=== PATIENT | female | born 1955 | race Caucasian/White ===

== ENCOUNTER 2019-08-09 17:50 | Emergency (ER) | payer MEDICARE, OTHER ==
[~2019-08-09] VITALS: Ht 160 cm; Wt 130.4 kg
[~2019-08-09 17:50] MED LIST: ALBU6.7H9 INH; ASPI81TA30 PO; BUDE10.22 INH; BUSP10TA10 PO; CALC-793 PO; DICL75TA5 PO; FERR325T39 PO; HYDR25TA4 PO; LIPOZENE PO; LISI-604 PO; SIMV20TA PO
[2019-08-09] MEDS ORDERED: diphenhydrAMINE 50 mg/ml inj IV ONE (18:55)
[2019-08-09] MEDS ORDERED: famotidine/PF 10 mg/ml inj IV ONE (18:55)
[2019-08-09] MEDS ORDERED: predniSONE 20 mg tablet PO STA (18:55)
[2019-08-09] MEDS ORDERED: DIPH-423 PO (21:46)
[2019-08-09] MEDS ORDERED: PRED20TA PO (21:46)
[2019-08-09 22:07] VITALS: BP 139/89
== END 2019-08-09 22:07 | disposition home or self-care (01) ==
LOC: ER 17:51
DX: T78.3XXA Angioneurotic edema, initial encounter (principal); E66.9 Obesity, unspecified; I10 Essential (primary) hypertension; J45.909 Unspecified asthma, uncomplicated; K21.9 Gastro-esophageal reflux disease without esophagitis; Z98.890 Other specified postprocedural states; Z88.5 Allergy status to narcotic agent; Z79.82 Long term (current) use of aspirin; Z79.899 Other long term (current) drug therapy; Y92.89 Other specified places as the place of occurrence of the external cause
CPT/HCPCS: 96374; 96375; 99284; J1200; J3490; J7512

== ENCOUNTER 2019-09-16 08:10 | Day surgery (SDC) | payer MEDICARE, OTHER ==
[~2019-09-16 08:10] MED LIST changes: +DIPH-423 PO
[2019-09-16] MEDS ORDERED: LIDOcaine 2% 5ml jelly ONE (08:33)
== END 2019-09-16 09:37 | disposition home or self-care (01) ==
LOC: WOUND CARE 08:10
PROVIDERS: ATTEND Nurse Practitioner
DX: L97.822 Non-pressure chronic ulcer of other part of left lower leg with fat layer exposed (principal); I10 Essential (primary) hypertension; I87.2 Venous insufficiency (chronic) (peripheral); I89.0 Lymphedema, not elsewhere classified; K21.9 Gastro-esophageal reflux disease without esophagitis; E66.9 Obesity, unspecified; E78.5 Hyperlipidemia, unspecified; J45.909 Unspecified asthma, uncomplicated; M19.90 Unspecified osteoarthritis, unspecified site; Z79.82 Long term (current) use of aspirin; Z79.899 Other long term (current) drug therapy; Z98.890 Other specified postprocedural states; Z87.891 Personal history of nicotine dependence; Z96.60 Presence of unspecified orthopedic joint implant; Z68.42 Body mass index [BMI] 45.0-49.9, adult; Z88.5 Allergy status to narcotic agent
CPT/HCPCS: 97597

== ENCOUNTER 2019-09-23 08:23 | Day surgery (SDC) | payer MEDICARE, OTHER ==
[2019-09-23] MEDS ORDERED: LIDOcaine 2% 5ml jelly ONE (08:33)
== END 2019-09-23 09:05 | disposition home or self-care (01) ==
LOC: WOUND CARE 08:23
PROVIDERS: ATTEND Nurse Practitioner
DX: L97.222 Non-pressure chronic ulcer of left calf with fat layer exposed (principal); I10 Essential (primary) hypertension; K21.9 Gastro-esophageal reflux disease without esophagitis; E78.5 Hyperlipidemia, unspecified; I89.0 Lymphedema, not elsewhere classified; E66.9 Obesity, unspecified; J45.909 Unspecified asthma, uncomplicated; M19.90 Unspecified osteoarthritis, unspecified site; I87.2 Venous insufficiency (chronic) (peripheral); Z79.899 Other long term (current) drug therapy; Z98.890 Other specified postprocedural states; Z87.891 Personal history of nicotine dependence; Z96.698 Presence of other orthopedic joint implants; Z79.82 Long term (current) use of aspirin; Z88.5 Allergy status to narcotic agent; Z68.42 Body mass index [BMI] 45.0-49.9, adult
CPT/HCPCS: 97597

== ENCOUNTER 2019-09-28 08:27 | Outpatient (CLI) | payer MEDICARE, OTHER | END 2019-09-28 09:17 | disposition home or self-care (01) | LOC: WOUND CARE 08:27 | PROVIDERS: ATTEND Nurse Practitioner | DX: L97.522 Non-pressure chronic ulcer of other part of left foot with fat layer exposed (principal); I10 Essential (primary) hypertension; K21.9 Gastro-esophageal reflux disease without esophagitis; E78.5 Hyperlipidemia, unspecified; I89.0 Lymphedema, not elsewhere classified; E66.9 Obesity, unspecified; J45.909 Unspecified asthma, uncomplicated; M19.90 Unspecified osteoarthritis, unspecified site; I87.2 Venous insufficiency (chronic) (peripheral); Z79.899 Other long term (current) drug therapy; Z98.890 Other specified postprocedural states; Z87.891 Personal history of nicotine dependence; Z96.698 Presence of other orthopedic joint implants; Z79.82 Long term (current) use of aspirin; Z88.5 Allergy status to narcotic agent; Z68.42 Body mass index [BMI] 45.0-49.9, adult | CPT/HCPCS: G0463 ==

== ENCOUNTER 2019-11-18 06:17 | Day surgery (SDC) | payer MEDICARE, OTHER ==
[2019-11-11 11:56] LABS: BASOPHILS % (AUTO) 0.5 % (0-1); CLARITY,URINE CLEAR (Clear); COLOR,URINE YELLOW (Yellow); EOSINOPHILS # (AUTO) 0.5 X10'3 (0-0.9); EOSINOPHILS % (AUTO) 4.9 % (0-6); GLUCOSE, URINE NEGATIVE (Neg); KETONES,URINE NEGATIVE (Neg); LEUKOCYTE ESTERASE ,URINE NEGATIVE (Neg); LYMPHOCYTES # (AUTO) 1.7 X10'3 (1.1-4.8); MEAN CORPUSCULAR HEMOGLOBIN 30.3 PG (27.0-31.0); MEAN CORPUSCULAR HGB CONC 33.2 g/dL (33.0-36.5); MEAN CORPUSCULAR VOLUME 91.4 FL (78-98); MEAN PLATELET VOLUME 8.7 FL (7.4-10.4); MONOCYTES # (AUTO) 0.8 X10'3 (0-0.9); MONOCYTES % (AUTO) 7.4 % (2-12); NEUTROPHILS # (AUTO) 7.6 X10'3 (1.8-7.7); NEUTROPHILS % (AUTO) 71.2 % (42-75); NITRITES, URINE NEGATIVE (Neg); OCCULT BLOOD,URINE NEGATIVE (Neg); PRE OP HEMATOCRIT 41.5 % (35.0-45.0); PRE OP HEMOGLOBIN 13.8 g/dL (12.0-16.0); PRE OP PLATELET COUNT 234 X10'3 (140-440); PROTEIN,URINE NEGATIVE (Neg); RED BLOOD COUNT 4.54 X10'6 (4.20-5.60); RED CELL DISTRIBUTION WIDTH 14.9 % (11.5-14.5); UROBILINOGEN,URINE 0.2 E.U/dL (0.2-1.0)
[2019-11-11 11:59] LABS: UA COLLECTION TYPE NON-SPECIFIED
[2019-11-11 12:13] LABS: ALBUMIN 3.3 G/DL (3.4-5.0); ALBUMIN/GLOBULIN RATIO 0.8 (1.1-1.5); ALKALINE PHOSPHATASE 78 IU/L (46-116); BLOOD UREA NITROGEN 14 MG/DL (7-18); BUN/CREATININE RATIO 11.8 (6.6-38.0); CHLORIDE 104 MMOL/L (99-107); CREATININE 1.19 MG/DL (0.40-0.90); PRE OP ALT 24 U/L (30-65); PRE OP ANION GAP 10 (8-16); PRE OP AST 15 U/L (10-37); PRE OP BILIRUB, TOTAL 0.4 MG/DL (0.0-1.0); PRE OP GLUCOSE 105 MG/DL (70-104); PRE OP SODIUM 140 MMOL/L (135-145); TOTAL PROTEIN 7.2 G/DL (6.4-8.2); eGFR 46 ML/MIN
[2019-11-11 12:37] LABS: PRE OP POTASSIUM 3.1 MMOL/L (3.4-5.1)
[2019-11-18] VITALS (18 sets, daily range): BP systolic 118–138; BP diastolic 60–74
[~2019-11-18] VITALS: Ht 162.6 cm; Wt 132.4 kg
[~2019-11-18 06:17] MED LIST changes: -CALC-793 PO; +CHLO25TA10 PO; +CHOL500049 PO; +DICL100G15 TOP; -DICL75TA5 PO; -HYDR25TA4 PO; +LIDOcaine 1% (10mg/ml) 2ml vial ONE; -LIPOZENE PO; -LISI-604 PO; +LOSA25TA41 PO; +MUPI22OI30 TOP; +OMEP-50 PO; +OXYB5TAB16 PO; +albuterol 2.5 MG/3 ML nebule NEB ONE; +ceFAZolin 2gm in dextrose, iso 50 ML IV ONE; +famotidine 20mg tablet PO ONE; +ringers solution, lacted 1,000 ML IV SCH
[2019-11-18] MEDS ORDERED: BUPIVAcaine/PF 2.5 mg/ml (0.25%) 30ml vial ONE (06:36)
[2019-11-18] MEDS ORDERED: bacitracin 15gm ointment TP ONE (06:36)
[2019-11-18 07:21] LABS: ISTAT CREATININE 0.7 mg/dL (0.6-1.1); ISTAT HGB 13.6 g/dl (12.0-16.0); ISTAT IONIZED CALCIUM 1.26 mmol/L (1.03-1.32); ISTAT K 3.6 mmol/L (3.5-5.1); POC BUN/CREATININE RATIO 22.9 (6.6-38.0)
[2019-11-18] MEDS ORDERED: rocuronium 10mg/ml inj IV ONE (07:37)
[2019-11-18] MEDS ORDERED: MIDAZolam 5mg/5ml vial ONE (07:37)
[2019-11-18] MEDS ORDERED: LIDOcaine 2% (20mg/ml) 5ml vial ONE (07:37)
[2019-11-18] MEDS ORDERED: fentaNYL/PF 50MCG/1 ML 2ML syringe ONE ×2 (07:37→08:42)
[2019-11-18] MEDS ORDERED: ROPIVAcaine 0.5% (5mg/ml) 30ml vial ONE ×2 (07:37→09:31)
[2019-11-18] MEDS ORDERED: propofol inj 20 ML IV ONE (07:37)
[2019-11-18] MEDS ORDERED: sevoflurane 250ml liquid IH ONE (08:11)
[2019-11-18] MEDS ORDERED: ringers solution, lacted 1,000 ML IV SCH (08:46)
[2019-11-18] MEDS ORDERED: meperidine/PF 25mg/ml syringe IV PRN ×2 (08:50)
[2019-11-18] MEDS ORDERED: HYDROmorphone inj. 0.5 MG/0.5 ML DISP.SYRIN IV PRN ×2 (08:50)
[2019-11-18] MEDS ORDERED: ondansetron/PF 4mg/2ml inj IV PRN (08:50)
[2019-11-18] MEDS ORDERED: acetaminophen 1,000mg/100ml IV 100 ML IV ONE (11:22)
--- NOTE | 2019-11-18 11:52 | NUR ---
RECEIVED FROM OR VIA [facility] ACCOMPANIED BY ANESTHESIOLOGIST DR REYES, REPORT GIVEN. PT DROWSY BUT AROUSES EASILY WITH NO COMPLAINT OF PAIN AT THIS TIME. 20 GAUGE PIV L HAND PATENT AND RUNNING LR AT 100 ML/HR. RFOOT DRESSING OF ADAPTIC,4X4, ELLIE WRAP AND SPLINT CDI. CAP REFILL GOOD, SKIN PINK AND WARM, VSS, ABD SOFT, RESTING COMFORTABLY WITH FOOT OF BED GATCHED.
[2019-11-18] MEDS ORDERED: glycopyrrolate 0.2mg/ml inj ONE (11:56)
[2019-11-18] MEDS ORDERED: dexamethasone sod phosphate 4mg/ml inj. ONE (11:56)
[2019-11-18] MEDS ORDERED: ondansetron/PF 4mg/2ml inj ONE (11:56)
[2019-11-18] MEDS ORDERED: neostigmine methylsulfate 1 MG/ML 10ml vial ONE (11:56)
--- NOTE | 2019-11-18 12:20 | NUR ---
AMEND>>> PREVIOUS NOTE SHOULD HAVE BEEN TIMED AT 1200<<<
--- NOTE | 2019-11-18 14:40 | NUR ---
PT AWAKE AND ALERT WITH COMPLAINT OF PAIN AT A LEVEL 4 AT THIS TIME. 20 GAUGE PIV L FA DC/D CATH TIP INTACT. RFOOT DRESSING OF ADAPTIC,4X4, WEBRIL ELLIE WRAP AND SPLINT WITH SMALL AMOUNT OF DRAINAGE. DR COLE AWARE AND DRESSING REINFORCED. CAP REFILL GOOD, SKIN PINK AND WARM, VSS, ABD SOFT, ABLE TO TOLERATE FLUIDS AND DRESS SELF. DISCHARGE INSTRUCTIONS GIVEN AND PT VERBALIZED UNDERSTANDING. TRANSFERRED TO BROTHER IN PERSONAL VEHICLE TO HOME
== END 2019-11-18 14:40 | disposition home or self-care (01) ==
LOC: PAS 06:17
PROVIDERS: ATTEND Podiatrist Foot & Ankle Surgery
DX: M21.41 Flat foot [pes planus] (acquired), right foot (principal); M21.6X1 Other acquired deformities of right foot; M19.071 Primary osteoarthritis, right ankle and foot; G89.18 Other acute postprocedural pain; K21.9 Gastro-esophageal reflux disease without esophagitis; M19.90 Unspecified osteoarthritis, unspecified site; F41.9 Anxiety disorder, unspecified; I10 Essential (primary) hypertension; E66.01 Morbid (severe) obesity due to excess calories; Z68.43 Body mass index [BMI] 50.0-59.9, adult; Z98.890 Other specified postprocedural states; Z96.653 Presence of artificial knee joint, bilateral; Z87.891 Personal history of nicotine dependence; Z88.5 Allergy status to narcotic agent; Z88.8 Allergy status to other drugs, medicaments and biological substances; Z11.59 Encounter for screening for other viral diseases; Z79.899 Other long term (current) drug therapy
CPT/HCPCS: 27687; 28715; 36415; 64447; 64450; 73630; 76000; 80047; 80053; 81003; 85025; 87635; A6223; C1713; C1758; C1762; J0131; J1100; J2001; J2250; J2405; J2704; J2710; J3010; J3490; J7120; A4618; A6449; A7000; J2795

== ENCOUNTER 2020-10-18 16:18 | Emergency (ER) | payer MEDICARE, OTHER ==
[~2020-10-18] VITALS: Ht 165.1 cm; Wt 139.1 kg
[~2020-10-18 16:18] MED LIST changes: -LIDOcaine 1% (10mg/ml) 2ml vial ONE; -albuterol 2.5 MG/3 ML nebule NEB ONE; -ceFAZolin 2gm in dextrose, iso 50 ML IV ONE; -famotidine 20mg tablet PO ONE; -ringers solution, lacted 1,000 ML IV SCH
[2020-10-18] MEDS ORDERED: methylPREDNISolone sod succ 125mg/2ml vial IV ONE (16:25)
[2020-10-18] MEDS ORDERED: diphenhydrAMINE 50 mg/ml inj IV ONE (16:25)
[2020-10-18] MEDS ORDERED: PRED20TA PO (17:59)
[2020-10-18 18:13] VITALS: BP 139/66
== END 2020-10-18 18:16 | disposition home or self-care (01) ==
LOC: ER 16:19
DX: R21 Rash and other nonspecific skin eruption (principal); T46.4X5A Adverse effect of angiotensin-converting-enzyme inhibitors, initial encounter; I10 Essential (primary) hypertension; J45.909 Unspecified asthma, uncomplicated; K21.9 Gastro-esophageal reflux disease without esophagitis; Z98.890 Other specified postprocedural states; Z79.899 Other long term (current) drug therapy; Z79.82 Long term (current) use of aspirin; Z88.6 Allergy status to analgesic agent; Z88.8 Allergy status to other drugs, medicaments and biological substances; Y92.89 Other specified places as the place of occurrence of the external cause
CPT/HCPCS: 96374; 96375; 99284; J1200; J2930

== ENCOUNTER 2020-10-25 20:33 | Emergency (ER) | payer MEDICARE, OTHER ==
[~2020-10-25] VITALS: Ht 165.1 cm; Wt 139.1 kg
[2020-10-25] MEDS ORDERED: epiNEPHrine 1 mg/ml inj SQ ONE (23:20)
[2020-10-25] MEDS ORDERED: methylPREDNISolone sod succ 125mg/2ml vial IV ONE (23:20)
[2020-10-25] MEDS ORDERED: albuterol 2.5 MG/3 ML nebule NEB ONE (23:20)
[2020-10-25] MEDS ORDERED: famotidine/PF 10 mg/ml inj IV ONE (23:20)
[2020-10-26] MEDS ORDERED: AMLO10TA48 PO (00:48)
[2020-10-26] MEDS ORDERED: PRED20TA PO (00:48)
[2020-10-26] MEDS ORDERED: FAMO-128 PO (00:48)
[2020-10-26 01:02] VITALS: BP 110/64
== END 2020-10-26 01:00 | disposition home or self-care (01) ==
LOC: ER 20:33
DX: T78.3XXA Angioneurotic edema, initial encounter (principal); T78.2XXA Anaphylactic shock, unspecified, initial encounter; J45.909 Unspecified asthma, uncomplicated; I10 Essential (primary) hypertension; K21.9 Gastro-esophageal reflux disease without esophagitis; Z98.890 Other specified postprocedural states; Z88.5 Allergy status to narcotic agent; Z88.8 Allergy status to other drugs, medicaments and biological substances; Z79.82 Long term (current) use of aspirin; Z79.899 Other long term (current) drug therapy; Y92.89 Other specified places as the place of occurrence of the external cause
CPT/HCPCS: 94640; 96372; 96374; 96375; 99284; J0171; J2930; J3490; 94760

== ENCOUNTER → 2020-11-26 | Emergency (ER) | payer MEDICARE, OTHER ==
[~2020-11-26] VITALS: Ht 165.1 cm; Wt 150.9 kg
[~2020-11-26] MED LIST changes: +AMLO10TA48 PO; +DIPH25CA83 PO; +FAMO-128 PO; +FAMO40TA58 PO; +PRED10TA23 PO; +diphenhydrAMINE 25mg capsule PO ONE; +epiNEPHrine 1 mg/ml inj IM STA; +famotidine 20mg tablet PO ONE; +predniSONE 20 mg tablet PO ONE
[2020-11-26 09:30] VITALS: BP 124/68
== END | disposition home or self-care (01) ==
LOC: ER 07:04
DX: R22.0 Localized swelling, mass and lump, head (principal); T45.0X5A Adverse effect of antiallergic and antiemetic drugs, initial encounter; I10 Essential (primary) hypertension; J45.909 Unspecified asthma, uncomplicated; K21.9 Gastro-esophageal reflux disease without esophagitis; Z98.890 Other specified postprocedural states; Z88.5 Allergy status to narcotic agent; Z88.8 Allergy status to other drugs, medicaments and biological substances; Z79.82 Long term (current) use of aspirin; Z79.899 Other long term (current) drug therapy; Y92.89 Other specified places as the place of occurrence of the external cause
CPT/HCPCS: 93005; 96372; 99291; J0171; J7512; Q0163

== ENCOUNTER → 2021-07-12 | Day surgery (SDC) | payer MEDICARE, OTHER ==
[2021-07-05 14:59] LABS: CLARITY,URINE CLEAR (Clear); GLUCOSE, URINE NEGATIVE (Neg); KETONES,URINE NEGATIVE (Neg); LEUKOCYTE ESTERASE ,URINE NEGATIVE (Neg); NITRITES, URINE NEGATIVE (Neg); OCCULT BLOOD,URINE NEGATIVE (Neg); PROTEIN,URINE NEGATIVE (Neg); UROBILINOGEN,URINE 0.2 E.U/dL (0.2-1.0)
[2021-07-05 15:00] LABS: COLOR,URINE STRAW (Yellow); UA COLLECTION TYPE CLN CATCH MIDSTREAM
[2021-07-05 15:03] LABS: BASOPHILS % (AUTO) 0.5 % (0-1); EOSINOPHILS # (AUTO) 0.3 X10'3 (0-0.9); EOSINOPHILS % (AUTO) 3.1 % (0-6); LYMPHOCYTES # (AUTO) 2.1 X10'3 (1.1-4.8); LYMPHOCYTES % (AUTO) 19.3 % (21-51); MEAN CORPUSCULAR HEMOGLOBIN 30.2 PG (27.0-31.0); MEAN CORPUSCULAR HGB CONC 33.2 g/dL (33.0-36.5); MEAN PLATELET VOLUME 9.1 FL (7.4-10.4); MONOCYTES # (AUTO) 0.7 X10'3 (0-0.9); NEUTROPHILS # (AUTO) 7.5 X10'3 (1.8-7.7); NEUTROPHILS % (AUTO) 70.1 % (42-75); PRE OP HEMATOCRIT 44.9 % (35.0-45.0); PRE OP HEMOGLOBIN 14.9 g/dL (12.0-16.0); PRE OP PLATELET COUNT 231 X10'3 (140-440); RED BLOOD COUNT 4.94 X10'6 (4.20-5.60); RED CELL DISTRIBUTION WIDTH 15.3 % (11.5-14.5)
[2021-07-05 15:06] LABS: ALBUMIN 3.4 G/DL (3.4-5.0); ALBUMIN/GLOBULIN RATIO 0.8 (1.1-1.5); ALKALINE PHOSPHATASE 107 IU/L (46-116); BLOOD UREA NITROGEN 18 MG/DL (7-18); BUN/CREATININE RATIO 21.4 (6.6-38.0); CALCIUM 9.2 MG/DL (8.5-10.1); CHLORIDE 104 MMOL/L (99-107); CREATININE 0.84 MG/DL (0.40-0.90); PRE OP ALT 24 U/L (30-65); PRE OP ANION GAP 10 (8-16); PRE OP AST 19 U/L (10-37); PRE OP BILIRUB, TOTAL 0.4 MG/DL (0.0-1.0); PRE OP GLUCOSE 89 MG/DL (70-104); PRE OP POTASSIUM 3.4 MMOL/L (3.4-5.1); PRE OP SODIUM 142 MMOL/L (135-145); TOTAL CARBON DIOXIDE 28.3 MMOL/L (24-32); TOTAL PROTEIN 7.7 G/DL (6.4-8.2); eGFR 68 ML/MIN
[~2021-07-12] VITALS: Ht 165.1 cm; Wt 142.0 kg
[2021-07-12] VITALS (8 sets, daily range): BP systolic 109–148; BP diastolic 51–81
[~2021-07-12] MED LIST changes: +ALB0.5UD IH; -AMLO10TA48 PO; +ASPI81TA52 PO; +BUPIVAcaine 0.5% inj/PF 0 ML ONE; +CALC-627 PO; -CHLO25TA10 PO; -DICL100G15 TOP; -DIPH-423 PO; -FAMO-128 PO; -FAMO40TA58 PO; +FENTANYL CITRATE/PF 50 MCG/1 ML VIAL ONE; +HYDR-3686 PO; +HYDROmorphone/PF 0.2 MG/ML SYRINGE IV PRN; +LIDOcaine 2% (20mg/ml) 5ml vial ONE; +LORA10CA PO; -LOSA25TA41 PO; -MUPI22OI30 TOP; -OMEP-50 PO; +OMEP20CA16 PO; +POTA-188 PO; -PRED10TA23 PO; +[UNRECOGNIZED DRUG - OTHER] PO; +albuterol 2.5 MG/3 ML nebule NEB ONE; +bacitracin 15gm ointment TP ONE; +ceFAZolin inj. 3,000 MG in normal saline 100ml IV soln 100 ML IV ONE; +cloNIDine hcl/PF 100mcg/ml inj ONE; -diphenhydrAMINE 25mg capsule PO ONE; -epiNEPHrine 1 mg/ml inj IM STA; +glycopyrrolate 0.2mg/ml inj ONE; +ipratropium/albuterol 3ml nebule IH ONE; +meperidine/PF 25mg/ml syringe IV PRN; +midazolam 1 mg/ML 2ml injection ONE; +neostigmine methylsulfate 1 MG/ML 10ml vial ONE; +ondansetron/PF 4mg/2ml inj IV PRN; +ondansetron/PF 4mg/2ml inj ONE; -predniSONE 20 mg tablet PO ONE; +propofol 10mg/ml 20ml vial IV ONE; +ringers solution, lacted 1,000 ML IV SCH; +rocuronium 10mg/ml inj IV ONE; +sevoflurane 250ml liquid IH ONE
--- NOTE | 2021-07-12 09:41 | NUR ---
ALL DISCHARGE CRITERIA HAS BEEN MET. VSS, PAIN AT A TOLERABLE LEVEL, AND ABLE TO SAFELY AMBULATE AND TRANSFER SELF. IV TAKEN OUT WITHOUT ANY COMPLICATIONS. ALL DISCHARGE INSTRUCTIONS COVERED WITH PATIENT AND ALL QUESTIONS ANSWERED. PATIENT TAKEN OUT VIA WHEELCHAIR TO PERSONAL VEHICLE WHERE FAMILY/FRIEND DROVE PATIENT HOME. Addendum: 07/12/21 at 1014 by Stephen Olea RN, RN Amended: Links added.
== END | disposition home or self-care (01) ==
LOC: PAS 05:23
PROVIDERS: ATTEND Podiatrist Foot & Ankle Surgery
DX: M79.671 Pain in right foot (principal); M19.071 Primary osteoarthritis, right ankle and foot; M65.871 Other synovitis and tenosynovitis, right ankle and foot; M24.071 Loose body in right ankle; G89.18 Other acute postprocedural pain; F32.A Depression, unspecified; F41.9 Anxiety disorder, unspecified; K21.9 Gastro-esophageal reflux disease without esophagitis; G47.30 Sleep apnea, unspecified; J45.909 Unspecified asthma, uncomplicated; E78.00 Pure hypercholesterolemia, unspecified; E66.9 Obesity, unspecified; Z68.43 Body mass index [BMI] 50.0-59.9, adult; Z87.891 Personal history of nicotine dependence; Z96.653 Presence of artificial knee joint, bilateral; Z98.890 Other specified postprocedural states; Z88.5 Allergy status to narcotic agent; Z88.8 Allergy status to other drugs, medicaments and biological substances; Z79.899 Other long term (current) drug therapy; Z20.822 Contact with and (suspected) exposure to COVID-19; Z79.82 Long term (current) use of aspirin; Z83.3 Family history of diabetes mellitus; Z82.3 Family history of stroke; Z82.49 Family history of ischemic heart disease and other diseases of the circulatory system
CPT/HCPCS: 29898; 36415; 64447; 64450; 76942; 80053; 81003; 82948; 85025; 94640; A6222; J0690; J0735; J2250; J3010; J3490; J7120; U0003; U0005; Z7506; Z7508; Z7512; A4215; A4618; A6449; A7000; J2405; J2704; J2710; S0020

== ENCOUNTER 2021-08-19 22:56 | Emergency (ER) | payer MEDICARE, OTHER ==
[~2021-08-19] VITALS: Ht 165.1 cm; Wt 144.5 kg
[~2021-08-19 22:56] MED LIST changes: -ASPI81TA52 PO; -BUPIVAcaine 0.5% inj/PF 0 ML ONE; -FENTANYL CITRATE/PF 50 MCG/1 ML VIAL ONE; -HYDROmorphone/PF 0.2 MG/ML SYRINGE IV PRN; -LIDOcaine 2% (20mg/ml) 5ml vial ONE; -albuterol 2.5 MG/3 ML nebule NEB ONE; -bacitracin 15gm ointment TP ONE; -ceFAZolin inj. 3,000 MG in normal saline 100ml IV soln 100 ML IV ONE; -cloNIDine hcl/PF 100mcg/ml inj ONE; -famotidine 20mg tablet PO ONE; -glycopyrrolate 0.2mg/ml inj ONE; -ipratropium/albuterol 3ml nebule IH ONE; -meperidine/PF 25mg/ml syringe IV PRN; -midazolam 1 mg/ML 2ml injection ONE; -neostigmine methylsulfate 1 MG/ML 10ml vial ONE; -ondansetron/PF 4mg/2ml inj IV PRN; -ondansetron/PF 4mg/2ml inj ONE; -propofol 10mg/ml 20ml vial IV ONE; -ringers solution, lacted 1,000 ML IV SCH; -rocuronium 10mg/ml inj IV ONE; -sevoflurane 250ml liquid IH ONE
[2021-08-19] MEDS ORDERED: methylPREDNISolone sod succ 125mg/2ml vial IV ONE (23:30)
[2021-08-19] MEDS ORDERED: diphenhydrAMINE 50 mg/ml inj IV ONE (23:30)
[2021-08-19] MEDS ORDERED: famotidine/PF 10 mg/ml inj IV ONE (23:30)
--- NOTE | 2021-08-20 00:02 | NUR ---
PT PINK, BREATHING UNLABORED, AND RELAXING DOING SUDUKO. PT HAS CALL LIGHT IN REACH AND IS MEDICATED. NO NEEDS AT THIS TIME.
[2021-08-20] MEDS ORDERED: FAMO-128 PO (01:24)
[2021-08-20] MEDS ORDERED: PRED20TA PO (01:24)
[2021-08-20] MEDS ORDERED: DIPH25CA83 PO (01:24)
[2021-08-20 01:34] VITALS: BP 126/57
== END 2021-08-20 01:37 | disposition home or self-care (01) ==
LOC: ER 22:56
DX: T78.3XXA Angioneurotic edema, initial encounter (principal); J45.909 Unspecified asthma, uncomplicated; I10 Essential (primary) hypertension; E78.00 Pure hypercholesterolemia, unspecified; Z88.8 Allergy status to other drugs, medicaments and biological substances; Z79.899 Other long term (current) drug therapy; Z88.5 Allergy status to narcotic agent
CPT/HCPCS: 96374; 96375; 99284; J1200; J2930; J3490

== ENCOUNTER 2022-09-02 12:31 | Outpatient (CLI) | payer MEDICARE, OTHER ==
[~2022-09-02 12:31] MED LIST changes: +ALBU6.7H14 INH; -ALBU6.7H9 INH; +FAMO-128 PO; +SIMV-342 PO; -SIMV20TA PO
== END 2022-09-02 23:59 | disposition home or self-care (01) ==
LOC: VAS 12:31
PROVIDERS: ATTEND Physician Assistant
DX: R60.0 Localized edema (principal)
CPT/HCPCS: 93971

== ENCOUNTER 2023-09-02 10:37 | Emergency (ER) | payer MEDICARE, OTHER ==
[~2023-09-02] VITALS: Ht 165.1 cm; Wt 127.3 kg
[~2023-09-02 10:37] MED LIST changes: -OXYB5TAB16 PO; +OXYB5TAB21 PO
[2023-09-02 11:39] VITALS: TEMP 97.3
[2023-09-02] MEDS: fentaNYL/PF 50MCG/1 ML 2ML syringe IV ONE (13:09)
[2023-09-02] MEDS: diazepam inj 5 MG/ML inj. IV ONE (13:09)
[2023-09-02] MEDS: propofol 10mg/ml 20ml vial IV ONE (15:11)
[2023-09-02] MEDS ORDERED: HYDR-3965 PO (16:25)
[2023-09-02 17:06] VITALS: BP 186/98; PULSE 94; RESP 18; O2SAT 97
== END 2023-09-02 17:11 | disposition home or self-care (01) ==
LOC: ER 10:37
DX: S43.005A Unspecified dislocation of left shoulder joint, initial encounter (principal); E78.00 Pure hypercholesterolemia, unspecified; I10 Essential (primary) hypertension; J45.909 Unspecified asthma, uncomplicated; K21.9 Gastro-esophageal reflux disease without esophagitis; M19.90 Unspecified osteoarthritis, unspecified site; F41.0 Panic disorder [episodic paroxysmal anxiety]; Z88.8 Allergy status to other drugs, medicaments and biological substances; Z79.82 Long term (current) use of aspirin; Z79.51 Long term (current) use of inhaled steroids; W31.9XXA Contact with unspecified machinery, initial encounter; Y93.89 Activity, other specified; Y92.89 Other specified places as the place of occurrence of the external cause; Y99.8 Other external cause status
CPT/HCPCS: 23650; 73020; 73030; 93005; 96374; 96375; 99284; A4565; A4615; A4620; J2704; J3010; J3360; J7030; 94760

== ENCOUNTER 2023-10-06 14:32 | Emergency (ER) | payer MEDICARE, OTHER ==
[~2023-10-06] VITALS: Ht 165.1 cm; Wt 126.0 kg
[2023-10-06] MEDS: dexamethasone sod phosphate 10mg/ml inj IM STA (15:18)
[2023-10-06] MEDS: famotidine 20mg tablet PO ONE (15:18)
[2023-10-06] MEDS ORDERED: FAMO-129 PO (15:38)
[2023-10-06 16:12] VITALS: BP 149/89; PULSE 83; RESP 14; TEMP 98.2; O2SAT 97
== END 2023-10-06 15:55 | disposition home or self-care (01) ==
LOC: ER 14:32
DX: R60.9 Edema, unspecified (principal); T36.8X5A Adverse effect of other systemic antibiotics, initial encounter; E78.00 Pure hypercholesterolemia, unspecified; I10 Essential (primary) hypertension; J45.909 Unspecified asthma, uncomplicated; K21.9 Gastro-esophageal reflux disease without esophagitis; Z88.8 Allergy status to other drugs, medicaments and biological substances; Z88.5 Allergy status to narcotic agent; Z79.82 Long term (current) use of aspirin; Z79.899 Other long term (current) drug therapy; Y92.89 Other specified places as the place of occurrence of the external cause
CPT/HCPCS: 96372; 99283; J1100

== ENCOUNTER 2024-03-07 09:07 | Outpatient (CLI) | payer MEDICARE, OTHER ==
[~2024-03-07 09:07] MED LIST changes: +FAMO-129 PO
[2024-03-07 09:38] LABS: BASOPHILS # (AUTO) 0.1 X10'3 (0-0.2); BASOPHILS % (AUTO) 0.6 % (0-1); EOSINOPHILS # (AUTO) 0.5 X10'3 (0-0.9); EOSINOPHILS % (AUTO) 5.9 % (0-6); HEMATOCRIT 44.5 % (35.0-45.0); HEMOGLOBIN 14.8 g/dl (12.0-16.0); LYMPHOCYTES # (AUTO) 1.9 X10'3 (1.1-4.8); LYMPHOCYTES % (AUTO) 21.3 % (21-51); MEAN CORPUSCULAR HEMOGLOBIN 30.7 PG (27.0-31.0); MEAN CORPUSCULAR HGB CONC 33.3 g/dL (33.0-36.5); MEAN CORPUSCULAR VOLUME 92.3 FL (78-98); MEAN PLATELET VOLUME 8.7 FL (7.4-10.4); MONOCYTES # (AUTO) 0.8 X10'3 (0-0.9); MONOCYTES % (AUTO) 9.2 % (2-12); NEUTROPHILS # (AUTO) 5.7 X10'3 (1.8-7.7); PLATELET COUNT 244 X10'3 (140-440); RED BLOOD COUNT 4.82 X10'6 (4.20-5.60); RED CELL DISTRIBUTION WIDTH 15.4 % (11.5-14.5)
[2024-03-07 09:58] LABS: ANION GAP 8 (8-16); BLOOD UREA NITROGEN 18 MG/DL (7-18); BUN/CREATININE RATIO 20.5 (10.0-20.0); CHLORIDE 107 MMOL/L (99-107); CREATININE 0.88 MG/DL (0.40-0.90); GLUCOSE 97 MG/DL (70-104); POTASSIUM 3.7 MMOL/L (3.5-5.1); SODIUM 141 MMOL/L (135-145); TOTAL CARBON DIOXIDE 26.5 MMOL/L (24-32)
[2024-03-07 09:59] LABS: ALANINE AMINOTRANSFERASE 23 U/L (12-78); ALBUMIN 3.2 G/DL (3.4-5.0); ALBUMIN/GLOBULIN RATIO 0.7 (1.1-1.5); ALKALINE PHOSPHATASE 98 IU/L (46-116); ASPARTATE AMINO TRANSFERASE 11 U/L (10-37); BILIRUBIN,TOTAL 0.5 MG/DL (0.1-1.0); CALCIUM 9.4 MG/DL (8.5-10.1); CHOL/HDL RATIO 2.5 (0.00-4.99); CHOLESTEROL 167 MG/DL (0-200); HDL CHOLESTEROL 66 MG/DL (35-60); LDL CHOLESTEROL 80 MG/DL (50-100); THYROID STIMULATING HORMONE 2.96 ulU/ml (0.34-4.50); TOTAL PROTEIN 7.5 G/DL (6.4-8.2); TRIGLYCERIDES 93 MG/DL (20-135); eGFR 64 ML/MIN
[2024-03-09 05:18] LABS: FOLATE SERUM(FOLIC) 15.5 ng/mL (>3.0); THYROXINE (T4) 8.3 ug/dL (4.5-12.0)
== END 2024-03-07 23:59 | disposition home or self-care (01) ==
LOC: 64 CT 09:07
PROVIDERS: ATTEND Physician Assistant
DX: E78.5 Hyperlipidemia, unspecified (principal); M79.641 Pain in right hand; I10 Essential (primary) hypertension; K21.9 Gastro-esophageal reflux disease without esophagitis; M25.552 Pain in left hip; Z82.49 Family history of ischemic heart disease and other diseases of the circulatory system
CPT/HCPCS: 36415; 73130; 73502; 75571; 80053; 80061; 82607; 82652; 82746; 84436; 84443; 85025

== ENCOUNTER 2024-06-21 18:33 | Emergency (ER) | payer MEDICARE, OTHER ==
[~2024-06-21] VITALS: Ht 165.1 cm; Wt 140.0 kg
[2024-06-21] MEDS ORDERED: TRIA15CR61 TOP (21:31)
[2024-06-21] MEDS ORDERED: PRED20TA PO (21:31)
[2024-06-21] MEDS ORDERED: CEPH-585 PO (21:31)
[2024-06-21] MEDS ORDERED: CLIN300C54 PO (21:41)
[2024-06-21 21:48] VITALS: BP 204/99; PULSE 87; RESP 18; TEMP 98.6; O2SAT 99
== END 2024-06-21 21:50 | disposition home or self-care (01) ==
LOC: ER 18:34
DX: L03.114 Cellulitis of left upper limb (principal); E78.00 Pure hypercholesterolemia, unspecified; K21.9 Gastro-esophageal reflux disease without esophagitis; I10 Essential (primary) hypertension; J45.909 Unspecified asthma, uncomplicated; M19.90 Unspecified osteoarthritis, unspecified site; Z88.8 Allergy status to other drugs, medicaments and biological substances; Z79.82 Long term (current) use of aspirin
CPT/HCPCS: 99283

== ENCOUNTER 2025-01-09 06:08 | Day surgery (SDC) | payer MEDICARE, OTHER ==
--- NOTE | 2025-01-05 15:24 | ELECTROCARDIOGRAPH REPORT ---
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 Marcus Velasquez Measurements Intervals [place] Rate: 68 P: 75 SD: 106 QRS: 65 QRSD: 107 T: 71 QT: 415 QTc: 442 Interpretive Statements Sinus rhythm Short SD interval Abnormal R-wave progression, early transition Electronically Signed On 01-09-2025 7:09:[address] Marcus Velasquez Please click the below link to view image of tracing.
[2025-01-05 15:27] LABS: MEAN PLATELET VOLUME 9.4 FL (7.4-10.4); PRE OP HEMATOCRIT 44.9 % (35.0-45.0); PRE OP HEMOGLOBIN 14.9 g/dL (12.0-16.0); PRE OP PLATELET COUNT 227 X10'3 (140-440); PRE OP WHITE BLOOD COUNT 9.2 10'3 (4.8-10.8); RED CELL DISTRIBUTION WIDTH 15.6 % (11.5-14.5)
[2025-01-05 15:40] LABS: CREATININE 0.90 MG/DL (0.40-0.90); PRE OP ALT 19 U/L (30-65); PRE OP ANION GAP 9 (8-16); PRE OP AST 17 U/L (10-37); PRE OP BILIRUB, TOTAL 0.4 MG/DL (0.0-1.0); PRE OP GLUCOSE 103 MG/DL (70-104); PRE OP POTASSIUM 3.4 MMOL/L (3.4-5.1); PRE OP SODIUM 144 MMOL/L (135-145); TOTAL CARBON DIOXIDE 27.8 MMOL/L (24-32); eGFR 62 ML/MIN
[~2025-01-09] VITALS: Ht 165.1 cm; Wt 138.3 kg
[~2025-01-09 06:08] MED LIST changes: -BUDE10.22 INH; -CALC-627 PO; -CHOL500049 PO; +DICL20GE TOP; +DOCU-148 PO; +EPIN0.3A3 IM; -FAMO-128 PO; -FAMO-129 PO; +FLUT1BLS16 INH; +FURO-150 PO; +MULT-1085 PO; +MUPIROCIN TOP; -POTA-188 PO; +POTA99CA PO; +SEMA1.7P SUBCUT; -[UNRECOGNIZED DRUG - OTHER] PO; +ringers solution, lacted 1,000 ML IV SCH
[2025-01-09 06:21] VITALS: RESP 16; O2SAT 98
[2025-01-09] MEDS: Cefazolin 3 GM/100ML NS IVPB 100 ML IV ONE (06:33)
[2025-01-09 06:42] VITALS: BP 149/64; PULSE 67; RESP 16; TEMP 97.6; O2SAT 96
[2025-01-09] MEDS ORDERED: BUPIVAcaine/PF 2.5mg/ml (0.25%) 10ml vial ONE (06:48)
[2025-01-09] MEDS ORDERED: LIDOcaine 2% (20mg/ml) 5ml vial ONE ×2 (06:48→08:02)
[2025-01-09] MEDS ORDERED: triamcinolone acetonide 40mg/ml inj ONE (08:02)
[2025-01-09] MEDS: BUPIVAcaine/PF 2.5mg/ml (0.25%) 10ml vial IJ ONE (08:38)
[2025-01-09] MEDS ORDERED: propofol inj 20 ML IV ONE (08:41)
[2025-01-09 08:44] VITALS: BP 121/68; PULSE 74; RESP 16; O2SAT 95
[2025-01-09 08:50] VITALS: BP 121/68; PULSE 68; RESP 16; O2SAT 98
[2025-01-09 09:00] VITALS: BP 108/62; PULSE 60; RESP 16; O2SAT 100
[2025-01-09 09:10] VITALS: BP 105/57; PULSE 62; RESP 14; O2SAT 97
--- NOTE | 2025-01-09 11:14 | OPERATIVE REPORT ---
Operative Report Providers to ~ Date of Procedure: Jan 09, 2025 Pre-Operative Diagnosis: Right carpal tunnel and middle trigger finger Post-Operative Diagnosis Right wrist carpal tunnel syndrome, right middle finger trigger finger Procedure Performed Right wrist open carpal tunnel release, incision of tendon sheath A1 armando right middle finger Surgeon: Kulwinder Hernandez MD [employer] Supervisor None Anesthesiologist: Aquilino Cobos Type of Anesthesia: Other (Local) Findings: Estimated Blood Loss: None Specimen Removed: None Description of Procedure: INDICATIONS: This patient is a 69 year old with right carpal tunnel syndrome and right middle trigger finger, refractory to conservative treatment. Surgery is indicated for relief of symptoms. Procedure- The risks, benefits, expected results, and possible complications of the planned procedure had been explained to the patient and informed consent obtained PROCEDURE: After the arm was prepped and draped in the usual manner. Local anesthetic was injected proximal to the planned incision sites. The anesthetic consisted of 0.25% Marcaine and 2% lidocaine. An incision was made in the palm ulnar to the thenar crease in line with the ring finger. Blunt dissection was performed through deeper tissues until the transverse carpal ligament was encountered. The carpal tunnel was entered with an incision in line with the skin incision. The nerve was protected and the ligament was released distally and proximally. The forearm fascia proximal to the incision was released using bunt Metzenbaum scissors. The nerve was decompressed at this point. The incision was irrigated and the small bleeders were cauterized. The wound was then closed with 5-O nylon sutures. Attention was turned to the trigger finger. A straight incision was made in the distal palm over the flexor tendon. Blunt dissection was done deeper, mobilizing and protecting the neurovascular bundles. The tendon sheath was opened midline, releasing the A1 armando. Tendons were inspected , no lesions were identified. The incision was irrigated and closed with Nylon suture, Marcaine was injected at both surgical sites, and a sterile dressing was applied. The tourniquet was released and the hand perfused well, patient was taken to the recovery room in stable condition. KULWINDER HERNANDEZ Jr., MD Jan 09, 2025 11:14
== END 2025-01-09 09:24 | disposition home or self-care (01) ==
LOC: PAS 06:08
PROVIDERS: ATTEND Orthopaedic Surgery Hand Surgery
DX: G56.01 Carpal tunnel syndrome, right upper limb (principal); M65.331 Trigger finger, right middle finger; R94.31 Abnormal electrocardiogram [ECG] [EKG]; I10 Essential (primary) hypertension; E66.01 Morbid (severe) obesity due to excess calories; I25.10 Atherosclerotic heart disease of native coronary artery without angina pectoris; E78.00 Pure hypercholesterolemia, unspecified; K21.9 Gastro-esophageal reflux disease without esophagitis; F41.9 Anxiety disorder, unspecified; F32.A Depression, unspecified; G47.33 Obstructive sleep apnea (adult) (pediatric); I25.2 Old myocardial infarction; M19.90 Unspecified osteoarthritis, unspecified site; Z87.891 Personal history of nicotine dependence; Z79.891 Long term (current) use of opiate analgesic; Z79.899 Other long term (current) drug therapy; Z90.89 Acquired absence of other organs; Z96.651 Presence of right artificial knee joint; Z98.890 Other specified postprocedural states; Z68.43 Body mass index [BMI] 50.0-59.9, adult; Z88.1 Allergy status to other antibiotic agents; Z88.5 Allergy status to narcotic agent; Z88.8 Allergy status to other drugs, medicaments and biological substances
CPT/HCPCS: 26055; 36415; 64721; 80053; 82948; 85025; 93005; A4215; A6449; J0690; J2003; J2704; J3490; J7030; J7120; Z7506; Z7512; Z7610; J3301

== ENCOUNTER 2025-02-06 05:44 | Day surgery (SDC) | payer MEDICARE, OTHER ==
[2025-01-31 09:34] LABS: MEAN PLATELET VOLUME 8.7 FL (7.4-10.4); PRE OP HEMATOCRIT 41.1 % (35.0-45.0); PRE OP HEMOGLOBIN 13.9 g/dL (12.0-16.0); PRE OP PLATELET COUNT 224 X10'3 (140-440); PRE OP WHITE BLOOD COUNT 14.0 10'3 (4.8-10.8); RED CELL DISTRIBUTION WIDTH 15.2 % (11.5-14.5)
[2025-01-31 09:52] LABS: CREATININE 0.97 MG/DL (0.40-0.90); PRE OP ALT 18 U/L (30-65); PRE OP ANION GAP 7 (8-16); PRE OP AST 17 U/L (10-37); PRE OP BILIRUB, TOTAL 0.3 MG/DL (0.0-1.0); PRE OP GLUCOSE 168 MG/DL (70-104); PRE OP POTASSIUM 3.8 MMOL/L (3.4-5.1); PRE OP SODIUM 140 MMOL/L (135-145); TOTAL CARBON DIOXIDE 24.8 MMOL/L (24-32); eGFR 57 ML/MIN
[~2025-02-06] VITALS: Ht 165.1 cm; Wt 140.3 kg
[2025-02-06] VITALS (7 sets, daily range): BP systolic 115–139; BP diastolic 61–76; PULSE 65–75; RESP 13–18; TEMP 97.6; O2SAT 96–99
[~2025-02-06 05:44] MED LIST changes: +BUPIVAcaine/PF 2.5mg/ml (0.25%) 10ml vial ONE; +CHOL25CA2 PO; +LIDOcaine 2% (20mg/ml) 5ml vial ONE; +MUPI22OI30 TOP; -MUPIROCIN TOP; +NITR0.4T51 SL; -ringers solution, lacted 1,000 ML IV SCH
[2025-02-06] MEDS: Cefazolin 3 GM/100ML NS IVPB 100 ML IV ONE (06:18)
[2025-02-06] MEDS: ringers solution, lacted 1,000 ML IV SCH (06:18)
[2025-02-06] MEDS ORDERED: fentaNYL/PF 50MCG/1 ML 2ML syringe ONE (07:34)
[2025-02-06] MEDS ORDERED: midazolam 1 mg/ML 2ml injection ONE (07:34)
[2025-02-06] MEDS ORDERED: LIDOcaine 2% (20mg/ml) 5ml vial ONE (07:53)
[2025-02-06] MEDS ORDERED: propofol inj 20 ML IV ONE (07:53)
[2025-02-06] MEDS: BUPIVAcaine/PF 2.5mg/ml (0.25%) 10ml vial IJ ONE (07:55)
--- NOTE | 2025-02-06 19:07 | OPERATIVE REPORT ---
Operative Report Providers to ~ Date of Procedure: Feb 06, 2025 Pre-Operative Diagnosis: Left carpal tunnel and middle trigger finger Post-Operative Diagnosis Left wrist carpal tunnel syndrome and left middle finger trigger finger Procedure Performed Left wrist open carpal tunnel release and middle finger trigger release Surgeon: Kulwinder Hernandez MD [employer] Employee None Anesthesiologist: Saman Mendes Type of Anesthesia: Other (Local) Findings: Estimated Blood Loss: None Specimen Removed: None Description of Procedure: The patient is a 69-year-old woman with left carpal tunnel syndrome and left middle finger trigger finger refractory to nonsurgical treatment. Surgery is indicated to relieve symptoms. Risks and benefits were discussed with the patient and she agreed to proceed. He was brought to the operating room where a time-out procedure was performed. The arm was prepped and draped in usual manner with a tourniquet on the forearm. Local anesthetic was infiltrated proximal to the wrist crease. A 3 cm incision was made in the palm ulnar to the thenar crease in line with the radial side of the ring finger through skin and palmar fascia. Blunt dissection was done to the transverse carpal ligament which was then opened in line with the skin incision. Distal release was done along with a proximal release into the forearm. The nerve was decompressed. The incision was irrigated and closed with nylon suture. A straight incision was made over the middle finger flexor tendon at the distal palm level. Dissection was taken down to the tendon sheath at the A1 armando. The A1 armando was released in the midline freeing up the tendons. Small amount of synovium was excised off of the tendons. The incision was irrigated and closed with nylon suture. Sterile dressing was applied and the tourniquet was released. The hand perfused well and he was taken to the recovery room in stable condition. KULWINDER HERNANDEZ Jr., MD Feb 06, 2025 19:07
== END 2025-02-06 08:51 | disposition home or self-care (01) ==
LOC: PAS 05:44
PROVIDERS: ATTEND Orthopaedic Surgery Hand Surgery
DX: G56.02 Carpal tunnel syndrome, left upper limb (principal); M65.332 Trigger finger, left middle finger; E78.00 Pure hypercholesterolemia, unspecified; E66.9 Obesity, unspecified; I10 Essential (primary) hypertension; I25.10 Atherosclerotic heart disease of native coronary artery without angina pectoris; J45.909 Unspecified asthma, uncomplicated; R73.09 Other abnormal glucose; Z68.42 Body mass index [BMI] 45.0-49.9, adult; Z96.653 Presence of artificial knee joint, bilateral; Z87.891 Personal history of nicotine dependence; Z82.49 Family history of ischemic heart disease and other diseases of the circulatory system; Z83.3 Family history of diabetes mellitus
CPT/HCPCS: 26055; 36415; 64721; 80053; 82948; 85025; A4215; A6449; J0690; J2003; J2250; J2704; J3010; J3490; J7030; J7120; Z7506; Z7512; Z7610